=== PATIENT | male | born 1995 | race Two or more races ===

== ENCOUNTER 2022-01-19 17:16 | Emergency (ER) | payer SELFPAY ==
[~2022-01-19] VITALS: Ht 182.9 cm; Wt 83.9 kg
[2022-01-19] MEDS ORDERED: DEXAMETHASONE SOD PHOSPHATE 4 MG/ML VIAL IM ONE (18:00)
[2022-01-19] MEDS ORDERED: PENICILLIN G BENZATHINE 2.4 MMU/4 ML ML IM ONE ×2 (18:00→19:31)
--- NOTE | 2022-01-19 19:19 | NUR ---
RAPID STREP SPECIMEN COLLECTED AND SENT TO LAB.
[2022-01-19] MEDS ORDERED: DEXAMETHASONE SOD PHOSPHATE 10 MG/ML VIAL ONE (19:31)
--- NOTE | 2022-01-19 19:44 | NUR ---
IM INJECTIONS GIVEN TO PATIENT
--- NOTE | 2022-01-19 20:09 | NUR ---
Patient discharged to home in stable condition. Written and verbal after care instructions given. Patient verbalizes understanding of instruction.
[2022-01-19 20:11] VITALS: BP 130/83
[2022-01-19 20:42] LABS: MONOTEST POSITIVE (NEGATIVE)
== END 2022-01-19 20:12 | disposition home or self-care (01) ==
LOC: ER 17:22
DX: B27.90 Infectious mononucleosis, unspecified without complication (principal)
CPT/HCPCS: 99284; 96372 ×2; 87081; 86308; 36415; 87880; J0558; J1100; 86403-TC